=== PATIENT | female | born 1945 | race Two or more races ===

== ENCOUNTER → 2016-10-03 | Day surgery (SDC) | payer MEDICARE, BC ==
[2016-10-03] VITALS (9 sets, daily range): BP systolic 122–148; BP diastolic 67–77
[~2016-10-03] VITALS: Ht 167.6 cm; Wt 59.0 kg
[~2016-10-03] MED LIST: AMLODIPINE BESY10 MG ORAL; ASPIR 8181 MG ORAL; ATORVASTATIN CA20 MG ORAL; Bacitracin Oint 15gm Tube TOPIC ONE; Betadine 10% Oint 15gm TOPIC ONE; Bupivacaine 0.5% Inj 30 ml vial INJ ONE; DIGOXIN125 MCG ORAL; Dexamethasone 4mg/ml vial INJ ONE; Dexamethasone 4mg/ml vial ONE; Glycopyrrolate 0.2mg/ml 1ml Vial ONE; Hydromorphone 0.5mg/0.5ml inj IVP PRN; Lidocaine 1% Plain 30 ml INJ ONE; Midazolam 2mg/2ml Inj ONE; NS Irrig 1000ml IRRIG ONE; Neostigmine 1mg/ml 10ml Inj ONE; Propofol 10mg/ml 20ml IV ONE; Sterile Water Irrig 1000ml IRRIG ONE; fentaNYL 100 mcg/2 mL IV ONE
--- NOTE | 2016-10-03 07:37 | Pre-Procedure Note/Attestation ---
Pre-Procedure Note/Attestation Complete Prior to Procedure Planned Procedure: left Procedure Narrative: Bunionectomy osteotomy left foot Indications for Procedure Pre-Operative Diagnosis: Hallux Abducto Valgus with bunion deformity left foot Attestation I attest that I discussed the nature of the procedure; its benefits; risks and complications; and alternatives (and the risks and benefits of such alternatives ), prior to the procedure, with the patient (or the patient's legal workforce services representative). I attest that, if there was a reasonable possibility of needing a blood transfusion, the patient (or the patient's legal workforce services representative) was given the [facility] standardized written summary, pursuant to the Matthew Humphrey Blood Safety Act ([place] Health and Safety Code # 1645, as amended). I attest that I re-evaluated the patient just prior to the surgery and that there has been no change in the patient's H&P, except as documented below: HAILEY GLASS Oct 03, 2016 07:37
--- NOTE | 2016-10-03 08:04 | Anethesia Preoperative Eval ---
Anesthesia Pre-op PMH/ROS General Date of Evaluation: Oct 03, 2016 Time of Evaluation: 07:20 Anesthesiologist: ANGE ASA Score: ASA 1 Mallampati Score Class I : Soft palate, uvula, fauces, pillars visible Class II: Soft palate, uvula, fauces visible Class III: Soft palate, base of uvula visible Class IV: Only hard plate visible Mallampati Classification: Class II Surgeon: MARIA LUISA Diagnosis: BUNION Surgical Procedure: BUNIOMNECTOMY L TOE Anesthesia History: none Family History: no anesthesia problems Allergies: Coded Allergies: No Known Allergies (Unverified , 10/02/16) Medications: see eMAR Past Medical History Cardiovascular: Denies: CAD, HTN, [place], arrhythmia, other, valve dz Pulmonary: Denies: COPD, MARIAMA, asthma, other Gastrointestinal/Genitourinary: Denies: CRI, ESRD, GERD, other Neurologic/Psychiatric: Denies: CVA, TIA, dementia, depression/anxiety, other Endocrine: Denies: DM, hypothyroidism, other, steroids HEENT: Denies: CAMPO (L), CAMPO (R), cataract (L), cataract (R), glaucoma, other Hematology/Immune: Denies: DVT, anemia, bleeding disorder, other Anesthesia Pre-op Phys. Exam Physician Exam Last Vital Signs Date Time Temp Pulse Resp B/P Pulse Ox O2 Delivery O2 Flow Rate FiO2 10/03/16 07:04 97.9 69 18 142/75 97 Room Air Constitutional: NAD Neurologic: CN 2-12 intact Cardiovascular: RRR Respiratory: CTA Gastrointestinal: S/NT/ND Airway Exam Mallampati Score: Class I MO: full ROM: full Teeth: intact Dentures: no lower, no upper Anesthesia Pre-op A/P Studies Pre-op Studies: EKG - WNL Risk Assessment & Plan Assessment: ASA1 Plan: GA Status Change Before Surgery: No Pre-Antibiotics Drug: ANCEF Given Within 1 Hr of Incision: Yes Time Given: 07:45 FELY CASSIDY M.D. Oct 03, 2016 08:03
--- NOTE | 2016-10-03 08:05 | Immediate Post-Op Evaluation ---
Immediate Post-Op Evalulation Immediate Post-Op Evalulation Procedure: BUNIONECTOMY L 1ST TOE Date of Evaluation: Oct 03, 2016 Time of Evaluation: 09:00 IV Fluids: 700 Blood Products: 0 Estimated Blood Loss: 0 Urinary Output: 0 Blood Pressure Systolic: 138 Blood Pressure Diastolic: 71 Pulse Rate: 68 Respiratory Rate: 15 O2 Sat by Pulse Oximetry: 100 Temperature (Fahrenheit): 98 Pain Score (1-10): 0 Nausea: No Vomiting: No Complications O Patient Status: awake, patent, none Hydration Status: adequate Drug: ANCEF Given Within 1 Hr of Incision: Yes Time Given: 07:45 FELY CASSIDY M.D. Oct 03, 2016 08:05
--- NOTE | 2016-10-03 08:06 | 48 Hour Post Anesthesia Eval ---
Post Anesthesia Evaluation Procedure: BUNIONECTOMY L 1ST TOE Date of Evaluation: Oct 03, 2016 Time of Evaluation: 12:00 Blood Pressure Systolic: 122 0: 76 Pulse Rate: 80 Respiratory Rate: 14 Temperature (Fahrenheit): 98 O2 Sat by Pulse Oximetry: 100 Airway: patent Nausea: No Vomiting: No Pain Intensity: 1 Hydration Status: adequate Mental Status/LOC: patient returned to baseline Post-Anesthesia Complications: NONE Follow-up care needed: ready to discharge FELY CASSIDY M.D. Oct 03, 2016 08:06
--- NOTE | 2016-10-03 09:05 | Brief Operative Note ---
Immediate Post Operative Note Operative Note Pre-op Diagnosis: Hallux Abducto Valgus with bunion deformity left foot Procedure: Bunionectomy osteotomy left foot Post-op Diagnosis: same as pre-op Surgeon: Lore Anesthesiologist: Jase Anesthesia: general Specimen: yes Complications: none Condition: stable Estimated Blood Loss: none Drains: none Implant(s) used?: Yes HAILEY GLASS Oct 03, 2016 09:05
--- NOTE | 2016-10-03 12:18 | Diagnostic Imaging Report ---
Indication: POST-OP Technique: 3 views left foot Comparison: none Findings: Is are images demonstrate surgical screw reducing first metatarsal osteotomy. There is evidence of bunionectomy. Surgical staple is also seen in the first proximal phalanx. No acute fractures. No dislocations. Retained air from the surgical wound is seen in the soft tissues Impression: Postoperative left foot. No unusual features
--- NOTE | 2016-10-03 16:48 | Operative Note - Dictated ---
DATE OF OPERATION: 10/03/2016 SURGEON: Hiro Torrez D.P.M. ANESTHESIOLOGIST: Dr. Laguna. ANESTHESIA: General. PREOPERATIVE DIAGNOSIS: Hallux abductovalgus with bunion deformity, left foot. POSTOPERATIVE DIAGNOSIS: Hallux abductovalgus with bunion deformity, left foot. PROCEDURE PERFORMED: 1. Chevron osteotomy with screw fixation, left foot. 2. Baldev osteotomy with staple fixation, left foot. DESCRIPTION OF THE OPERATION: The patient was brought to the operating room and was placed on the operating room table in the supine position. General anesthesia was administered by the anesthesiologist. Local anesthesia consisting of 0.5% Marcaine plain, total of 20 mL, was administered to the left foot. An ankle tourniquet was applied to the left lower extremity. The foot was prepped and draped in the usual sterile manner. An Esmarch bandage was utilized to exsanguinate the blood, and the left ankle tourniquet was inflated to 250 mmHg. Attention was then directed to the left hallux where an approximately 7 cm curvilinear incision was centered over the first metatarsophalangeal joint. The incision was deepened utilizing sharp and blunt dissection with care being taken to cauterize and/or ligate all bleeders. At the level of the capsule, a linear capsulotomy was performed. The capsule was reflected medially and laterally, and the first metatarsal head and proximal phalanx base were exposed. At this point, utilizing a sagittal saw, the medial eminence was resected in toto. The remaining bone was rasped smooth. Utilizing a sagittal saw, a V-type osteotomy was performed through and through with the apex distal and the arms protruding proximally. The capital fragment was transposed laterally and fixated into the first metatarsal neck utilizing 22 mm 2.5 headless screw, which was driven from proximal dorsal to plantar distal. At this point, the overhang was resected utilizing a sagittal saw. The remaining bone was rasped smooth. The wound was copiously flushed utilizing sterile saline. Attention was then directed to the shaft of the proximal phalanx. The capsular attachments and periosteum were reflected. Utilizing a sagittal saw, the medial wedge was resected. The lateral cortex was left intact, and the osteotomy was reduced and fixated utilizing a staple, which was inserted just proximally and distally to the osteotomy. The wound was copiously flushed utilizing sterile saline. At this point, a lateral release was performed to free the lateral capsule and abductor hallucis attachments onto the base of the proximal phalanx in order to realign the hallux in a rectus position. There were a lot of contractures including skin adaptation to the hallux in laterally deviated position, and complete realignment was difficult to achieve. The wound was copiously flushed utilizing sterile saline. At this point, the capsule was reapproximated utilizing 3-0 Vicryl in a simple interrupted type stitch. Subcutaneous tissue was then reapproximated utilizing 4-0 Vicryl in a buried knot type stitch. The skin was then reapproximated utilizing 4-0 nylon in a simple interrupted type stitch. The wound was dressed utilizing an Adaptic, 4x4 gauze, and 3-inch Rasheeda. Left ankle tourniquet was deflated and vascular supply was noted to all digits of the left foot. The patient tolerated the procedure well and left the operating room to recovery room with all vital signs stable. Hiro Torrez D.P.M. DR: YIN JOB#: [id number] CC:
--- NOTE | 2016-10-03 19:08 | History and Physical Report ---
DATE OF ADMISSION: 10/03/2016 HISTORY OF PRESENT ILLNESS: The patient is a 70-year-old white female that is admitted today for an outpatient left foot bunionectomy. The patient has been complaining of pain for the past several years and had tried to accommodate her deformed foot with shoe gear modification and padding without success. She elected to proceed with surgery. PAST MEDICAL HISTORY: Remarkable for hypertension, head injury, dizziness and arthritis of the lower back. MEDICATIONS: Digoxin, amlodipine, atorvastatin, and aspirin. ALLERGIES: No known allergies. PODIATRIC PHYSICAL EXAMINATION: EXTREMITIES: The dorsalis pedis and posterior tibial arteries are measuring 1/4 bilaterally. Capillary filling time is less than 4 seconds to all digits bilaterally. Homans sign is negative. Mild varicosities are noted to bilateral lower extremity. NEUROLOGICAL: Reveals intact reflexes Achilles and patellar measuring 2/4 bilaterally. He has sensation proprioception and vibration. Sensation are all intact bilaterally. Babinski is negative. Clonus is absent. MUSCULOSKELETAL: Reveals a stage IV hallux abductovalgus with bunion deformity of the left foot. The hallux is overriding at the second digit with a severe lateral contracture. Range of motion of the first metatarsophalangeal joint on the left is slightly reduced. No crepitation is noted. Mild reducible hammertoes are noted bilateral digits second through fifth. DERMATOLOGICAL: Reveals no ulcers or lesions bilaterally. No scars are evident. All nails are present and healthy. ASSESSMENT: Hallux abductovalgus with bunion deformity, left foot. PLAN: The patient is admitted today for bunionectomy of the left foot. Postoperative instructions were given. Postoperative medications were dispensed to the patient and the patient elected to proceed with surgery. Hiro Torrez D.P.M. DR: CHRIS JOB#: [id number] CC:
== END | disposition home or self-care (01) ==
LOC: SUR 06:24
DX: M20.12 Hallux valgus (acquired), left foot (principal); M21.612 Bunion of left foot; I10 Essential (primary) hypertension; I25.10 Atherosclerotic heart disease of native coronary artery without angina pectoris; M46.90 Unspecified inflammatory spondylopathy, site unspecified; Z79.82 Long term (current) use of aspirin
CPT/HCPCS: 28299; 73630; 97161; C1713; G8978; G8979; G8980; J0690; J1100; J2250; J2704; J2710; J3010; J3490; 94003; 94150